=== PATIENT | male | born 1990 | race Caucasian/White ===

== ENCOUNTER 2018-01-19 00:17 | Emergency (ER) | payer OTHER ==
--- NOTE | 2018-01-19 00:27 | EDPHY ---
H & P Stated Complaint: Abd pain, RLQ, "i feel like a swallow glass", nausea Time Seen by Provider: 01/19/18 00:27 HPI/ROS: HPI CHIEF COMPLAINT: Abdominal pain HISTORY OF PRESENT ILLNESS: This is a otherwise healthy 27-year-old male, presents emergency room for abdominal pain. Patient states around 9:00 p.m. Last night or over 24 hr ago he was eating his dinner, he had rice as well as beans, and barley, however he bit down on something hard and spit it out and thinks it was a piece of glass. He then swallow the rest of his food. However he is unsure if there was more glass in his food and if he may have swallowed a piece of glass. He states shortly after eating he developed some mid abdominal discomfort vague discomfort, ignored all night and nor did most of the day. Went to the gym worked out. This evening the pain got a little bit worse. However it is localized in his right lower quadrant. His so she had nausea but no vomiting. Does complain of some loose stools. Possible orange discoloration. But denies masoud blood. Denies chest pain, shortness of breath. Denies fever. Denies severe abdominal pain. He became anxious over this and decided come the emergency room. Past Medical History: Denies significant medical history Past Surgical History: Denies significant surgical history Social History: He denies drugs alcohol tobacco. Family History: Noncontributory ROS REVIEW OF SYSTEMS: 10 Systems were reviewed and negative with the exception of the elements mentioned in the history of present illness. Exam Constitutional nontoxic. No acute distress, however somewhat anxious triage nursing summary reviewed, vital signs reviewed, awake/alert. Eyes normal conjunctivae and sclera, EOMI, PERRLA. HENT normal inspection, atraumatic, moist mucus membranes, no epistaxis, neck supple/ no meningismus, no raccoon eyes. Respiratory clear to auscultation bilaterally, normal breath sounds, no respiratory distress, no wheezing. Cardiovascular rate normal, regular rhythm, no murmur, no edema, distal pulses normal. Gastrointestinal mild tender palpation right lower quadrant, no peritoneal signs, no rebound, no guarding, normal bowel sounds, no distension, no pulsatile mass. Genitourinary no CVA tenderness. Musculoskeletal no midline vertebral tenderness, full range of motion, no calf swelling, no tenderness of extremities, no meningismus, good pulses, neurovascularly intact. Skin pink, warm, & dry, no rash, skin atraumatic. Neurologic awake, alert and oriented x 3, AAOx3, moves all 4 extremities equally, motor intact, sensory intact, CN II-XII intact, normal cerebellar, normal vision, normal speech. Psychiatric normal mood/affect. Heme/Lymph/Immune no lymphadenopathy. Differential diagnosis includes but is not limited to and in no particular order: Ingestion of foreign body, bowel perforation, glass foreign body, Bowel obstruction, appendicitis, gallbladder disease, diverticulitis, colitis, enteritis, perforated viscus, gastritis, GERD, esophagitis, urinary tract infection, pyelonephritis, kidney stones the Medical Decision Making: Plan for this patient IV establishment IV fluid bolus Zofran for nausea, start off with KUB to rule out free air or evidence of foreign body. Additionally the patient has right lower quadrant pain concerning for possible appendicitis. If x-rays unremarkable are nonrevealing may proceed with CT scan abdomen pelvis with IV contrast. Re-evaluation: KUB x-ray for foreign body ingestion or free air is unremarkable. Image interpreted by myself. I do not appreciate foreign body. There is no free air under the diaphragm. Significant stool burden. Given the patient's ongoing right lower quadrant pain will out rule out acute appendicitis with CT scan abdomen pelvis with IV contrast. However there is a large amount of stool fecal material on x-ray. This may be the cause of his pain. The given the patient's right lower quadrant abdominal pain I did recommend he gets this CT scan abdomen pelvis with IV contrast rule out appendicitis. However after lengthy discussion with the patient he has declined the CT scan. He understands that by declining the CT scan I am unable to fully evaluate him for acute appendicitis. And that he could have appendicitis and by not getting the CT scan and leaving the emergency room he could have worsening symptoms worsening condition. He could have a ruptured appendix with intra-abdominal peritonitis. I strongly encouraged the patient to get a CT scan however this time is declining. He reports that he would come back if his abdominal pain gets worse. I explained him that his abdominal pain gets worse syncope perforated appendicitis and putting his health at jeopardy. Additionally if he has worsening pain over the next 12-24 hours he needs to immediately return. As he is declining CT at this time. The main reason the patient came into the emergency room is lower right quadrant abdominal pain. It is noted his blood work is reassuring with no high white count he does not have a fever here. He is not vomiting. However clinically he could still 10 ascites given his tenderness in the right lower quadrant. He understands this. He understands the risks of refusing CT imaging. Patient is signed out against medical advice given he does not want CT imaging and cannot fully exclude appendicitis. Return precautions discussed with him he understands. Source: Patient - Personal History Current Tetanus Diphtheria and Acellular Pertussis (TDAP): Yes - Medical/Surgical History Hx Asthma: No Hx Chronic Respiratory Disease: No Hx Diabetes: No Hx Cardiac Disease: No Hx Renal Disease: No Hx Cirrhosis: No Hx Alcoholism: No Hx HIV/AIDS: No Hx Splenectomy or Spleen Trauma: No Other PMH: denies - Social History Smoking Status: Never smoked Constitutional: Initial Vital Signs Temperature (C) 36.7 C 01/19/18 00:24 Heart Rate 76 01/19/18 00:24 Respiratory Rate 18 01/19/18 00:24 Blood Pressure 127/87 H 01/19/18 00:24 O2 Sat (%) 93 01/19/18 00:24 O2 Delivery Mode Room Air Allergies/Adverse Reactions: No Known Allergies Allergy (Unverified 01/19/18 00:24) Medical Decision Making - Data Points Laboratory Results: Laboratory Results 01/19/18 00:40 01/19/18 00:40 01/19/18 01/19/18 01/19/18 01:45 00:40 00:40 WBC 6.78 10^3/uL 10^3/uL (3.80-9.50) RBC 5.25 10^6/uL 10^6/uL (4.40-6.38) Hgb 15.9 g/dL g/dL (13.7-17.5) Hct 46.3 % % (40.0-51.0) MCV 88.2 fL fL (81.5-99.8) MCH 30.3 pg pg (27.9-34.1) MCHC 34.3 g/dL g/dL (32.4-36.7) RDW 12.5 % % (11.5-15.2) Plt Count 221 10^3/uL 10^3/uL (150-400) MPV 12.2 fL H fL (8.7-11.7) Neut % (Auto) 44.5 % % (39.3-74.2) Lymph % (Auto) 44.4 % % (15.0-45.0) [place] % (Auto) 8.4 % % (4.5-13.0) Eos % (Auto) 1.9 % % (0.6-7.6) Baso % (Auto) 0.7 % % (0.3-1.7) Nucleat RBC Rel Count 0.0 % % (0.0-0.2) Absolute Neuts (auto) 3.01 10^3/uL 10^3/uL (1.70-6.50) Absolute Lymphs (auto) 3.01 10^3/uL H 10^3/uL (1.00-3.00) Absolute Monos (auto) 0.57 10^3/uL 10^3/uL (0.30-0.80) Absolute Eos (auto) 0.13 10^3/uL 10^3/uL (0.03-0.40) Absolute Basos (auto) 0.05 10^3/uL 10^3/uL (0.02-0.10) Absolute Nucleated RBC 0.00 10^3/uL 10^3/uL (0-0.01) Immature Gran % 0.1 % % (0.0-1.1) Immature Gran # 0.01 10^3/uL 10^3/uL (0.00-0.10) Sodium 143 mEq/L mEq/L (135-145) Potassium 4.2 mEq/L mEq/L (3.3-5.0) Chloride 104 mEq/L mEq/L (97-110) Carbon Dioxide 29 mEq/l mEq/l (22-31) Anion Gap 10 mEq/L mEq/L (8-16) BUN 20 mg/dL mg/dL (7-23) Creatinine 1.0 mg/dL mg/dL (0.7-1.3) Estimated GFR > 60 Glucose 85 mg/dL mg/dL (70-100) Calcium 10.1 mg/dL mg/dL (8.5-10.4) Total Bilirubin 0.5 mg/dL mg/dL (0.1-1.4) Conjugated Bilirubin 0.1 mg/dL mg/dL (0.0-0.5) Unconjugated Bilirubin 0.4 mg/dL mg/dL (0.0-1.1) AST 40 IU/L IU/L (17-59) ALT 36 IU/L IU/L (21-72) Alkaline Phosphatase 80 IU/L IU/L (38-126) Total Protein 8.0 g/dL g/dL (6.3-8.2) Albumin 5.0 g/dL g/dL (3.5-5.0) Lipase 74 IU/L IU/L (23-300) Urine Color YELLOW Urine Appearance HAZY Urine pH 7.0 (5.0-7.5) Ur Specific [place] 1.011 (1.002-1.030) Urine Protein NEGATIVE (NEGATIVE) Urine Ketones NEGATIVE (NEGATIVE) Urine Blood 1+ H (NEGATIVE) Urine Nitrate NEGATIVE (NEGATIVE) Urine Bilirubin NEGATIVE (NEGATIVE) Urine Urobilinogen NEGATIVE EU EU (0.2-1.0) Ur Leukocyte Esterase NEGATIVE (NEGATIVE) Urine RBC 1-3 /hpf /hpf (0-3) Urine WBC 1-3 /hpf /hpf (0-3) Ur Epithelial Cells NONE SEEN /lpf /lpf (NONE-1+) Urine Sperm PRESENT /hpf /hpf (NONE SEEN) Urine Glucose NEGATIVE (NEGATIVE) Medications Given: Discontinued Medications Sodium Chloride (Ns) 1,000 mls @ 0 mls/hr IV EDNOW ONE; Wide Open PRN Reason: Protocol Stop: 01/19/18 00:37 Last Admin: 01/19/18 00:42 Dose: 1,000 mls Ondansetron HCl (Zofran) 4 mg IVP EDNOW ONE Stop: 01/19/18 00:37 Last Admin: 01/19/18 00:42 Dose: Not Given Departure - Departure Disposition: Against Medical Advice Clinical Impression: Abdominal pain Qualifiers: Abdominal location: right lower quadrant Qualified Code(s): R10.31 - Right lower quadrant pain Condition: Fair Instructions: Acute Abdominal Pain (ED) Additional Instructions: 1. Please return immediately to the emergency room if you have worsening abdominal pain. 2. Because you chose not to get a CT scan we were unable fully exclude appendicitis. Please return emergency room if you have worsening pain questions or concerns. If he change of mind about getting a CT scan please immediately return. Referrals: NONE *PRIMARY CARE P,. [Primary Care Provider] - As per Instructions
[2018-01-19] MEDS ORDERED: NS 1,000 ML IV ONE (00:36)
[2018-01-19] MEDS ORDERED: ONDANSETRON 4 MG/2 ML VIAL IVP ONE (00:36)
[2018-01-19 01:17] LABS: PLATELET COUNT 221 10^3/uL (150-400)
[2018-01-19] MEDS ORDERED: IOPAMIDOL (ISOVUE-300) 100 ML BTL ONE (01:52)
[2018-01-19 02:41] VITALS: BP 113/62
== END 2018-01-19 02:41 | disposition left against medical advice (07) ==
DX: R10.31 Right lower quadrant pain (principal)
CPT/HCPCS: 96374; J2405; Q9967